=== PATIENT | female | born 1995 | race Caucasian/White ===

== ENCOUNTER 2020-06-30 08:58 | Outpatient (CLI) | payer MEDICAID, SELFPAY ==
[2020-07-04] MEDS ORDERED: PRETAB PO (17:46)
== END 2020-06-30 21:21 | disposition home or self-care (01) ==
LOC: MLB 08:58
PROVIDERS: ATTEND Obstetrics & Gynecology
DX: Z20.828 Contact with and (suspected) exposure to other viral communicable diseases (principal)
CPT/HCPCS: U0003